=== PATIENT | male | born 1980 | race Hispanic/Latino ===

== ENCOUNTER 2017-11-19 15:00 | Outpatient (RCR) | payer OTHER | END 2017-11-23 | LOC: OT 15:00 | PROVIDERS: ATTEND Surgery Surgery of the Hand | DX: L91.0 Hypertrophic scar (principal); G56.03 Carpal tunnel syndrome, bilateral upper limbs; M25.532 Pain in left wrist; M25.632 Stiffness of left wrist, not elsewhere classified; R53.1 Weakness | CPT/HCPCS: 97022 ×3; 97035 ×3; 97110 ×3; 97139; 97140 ×2; 97165; G8987; G8988 ==